=== PATIENT | male | born 1985 | race Caucasian/White ===

== ENCOUNTER 2021-12-28 03:06 | Emergency (ER) | payer MEDICAID ==
[~2021-12-28] VITALS: Ht 188 cm; Wt 185.0 kg
[2021-12-28 03:24] VITALS: BP 185/95
[2021-12-28] MEDS ORDERED: HYDROCODONE/ACETAMINOPHEN 5/325MG TABLET PO ONE (03:45)
[2021-12-28] MEDS ORDERED: KETOROLAC 30MG/ML VIAL IM ONE (03:45)
[2021-12-28 04:40] LABS: CLARITY URINE CLEAR (CLEAR); COLOR URINE YELLOW (YELLOW); KETONES URINE NEGATIVE (NEGATIVE); LEUKOCYTE ESTERASE URINE NEGATIVE (NEGATIVE); NITRITE URINE NEGATIVE (NEGATIVE); OCCULT BLOOD URINE NEGATIVE (NEGATIVE); PROTEIN URINE NEGATIVE (NEGATIVE); SPECIFIC GRAVITY URINE 1.029 (1.005-1.030)
[2021-12-28] MEDS ORDERED: NAPR-1176 MT (04:49)
[2021-12-28] MEDS ORDERED: CYCL10TA21 MT (04:49)
== END 2021-12-28 04:59 | disposition home or self-care (01) ==
LOC: ER 03:06
DX: I10 Essential (primary) hypertension (principal); M54.50 Low back pain, unspecified
CPT/HCPCS: 81003; 96372; 99283; J1885

== ENCOUNTER 2022-03-01 19:43 | Emergency (ER) | payer MEDICAID ==
[~2022-03-01] VITALS: Ht 188 cm; Wt 200.0 kg
[~2022-03-01 19:43] MED LIST: CYCL10TA21 MT; NAPR-1176 MT
[2022-03-02] MEDS ORDERED: BACITRACIN ZINC OINT UDPKT TOP ONE (02:30)
[2022-03-02] MEDS ORDERED: IBUPROFEN 600MG TABLET PO ONE (02:30)
[2022-03-02] MEDS ORDERED: TETANUS, DIPHTHERIA, PERTUSSIS VAC/PF 0.5ML (>10YR OLD) IM ONE (02:30)
[2022-03-02] MEDS ORDERED: LIDOCAINE HCL/EPINEPHRINE 1%-EPI 1:100,000 20 ML VIAL INFIL ONE (02:30)
[2022-03-02] MEDS ORDERED: ACETAMINOPHEN 325MG TABLET PO ONE (02:30)
[2022-03-02] MEDS ORDERED: SULF1TAB48 MT (03:41)
[2022-03-02 04:30] VITALS: BP 137/81
== END 2022-03-02 04:37 | disposition home or self-care (01) ==
LOC: ER 19:43
DX: L02.416 Cutaneous abscess of left lower limb (principal)
CPT/HCPCS: 90471; 90715; 99283; J3490; Z7610